=== PATIENT | female | born 1945 | race Caucasian/White ===

== ENCOUNTER → 2016-09-05 | Outpatient (CLI) | payer MEDICARE, OTHER ==
--- NOTE | 2016-09-05 11:11 | Diagnostic Imaging Report ---
Indication: COUGH Technique: One view of the chest Comparison: none Findings: No acute infiltrates, effusions, or congestion. Tortuous calcified aorta. Normal heart size. Upper mediastinum unremarkable. There is mild thoracic kyphotic deformity without evidence of focal compression fracture Impression: No acute process.
== END | disposition home or self-care (01) ==
LOC: RAD 10:12
DX: R05 Cough (principal)
CPT/HCPCS: 71020